=== PATIENT | female | born 1995 | race African-American/Black ===

== ENCOUNTER → 2021-11-27 09:30 | Outpatient (CLI) | payer OTHER, SELFPAY ==
--- NOTE | 2021-11-27 09:40 | DI.MRI.S_ITS ---
PROCEDURE: MR HEAD/BRAIN WO/W CON INDICATIONS: [place] TECHNIQUE: Noncontrast axial T1 spin echo, axial T2 fast spin echo, sagittal and axial FLAIR, coronal T2 fast spin echo, axial gradient echo, axial diffusion and ADC through the brain. After the administration of contrast, axial and coronal 3D VIBE or T1 spin echo with fat saturation through the brain. COMPARISON: None. FINDINGS: Image quality: Excellent. CSF Spaces: Basal cisterns are patent. No extra-axial fluid collections. Ventricles are normal in size and shape. Brain: No midline shift. No intracranial bleeds or masses. No abnormal intracranial enhancement. The brainstem appears normal. Diffusion-weighted images demonstrate no acute ischemic insults. No chronic ischemic insults. Normal intravascular flow voids are present. Skull and face: Calvarial marrow is normal in signal. Orbits appear normal. Sinuses: Mild left greater than right maxillary sinus mucosal thickening. Sinuses and mastoids otherwise appear clear. IMPRESSION: 1. No acute process. No recent infarct. 2. Negative evaluation of the brain. Dictated by: Kapil Mathew M.D. on 11/27/2021 at 10:28 Approved by: Kapil Mathew M.D. on 11/27/2021 at 10:29
== END ==
DX: R06.6 Hiccough (principal)
CPT/HCPCS: 70553; A9579